=== PATIENT | female | born 1990 | race Caucasian/White ===

== ENCOUNTER 2020-04-12 17:47 | Emergency (ER) | payer BC ==
[2020-04-12] MEDS ORDERED: Albuterol/Ipratropium 3.0-0.5 MG/3 ML Neb Soln NEB ONE ×2 (17:58→18:59)
[2020-04-12] MEDS ORDERED: Sodium Chloride 0.9% 10 ML Syringe FLUSH PRN (17:58)
[2020-04-12] MEDS ORDERED: Sodium Chloride 0.9% 2.5 ML Syringe FLUSH PRN (17:58)
--- NOTE | 2020-04-12 18:02 | EDM.PDOC ---
<Arabella Lares - Last Filed: 04/12/20 19:02> ED HPI GENERAL MEDICAL PROBLEM - General Chief Complaint: Asthma Stated Complaint: Asthma Time Seen by Provider: 04/12/20 17:50 Source of Information: Reports: Patient History Limitations: Reports: No Limitations - History of Present Illness INITIAL COMMENTS - FREE TEXT/NARRATIVE: History of present illness: 29-year-old female presenting with difficulty breathing shortly before arriving here. 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 She had multiple visits today and she had to wear the mask for a long period of time and she felt by the fourth visit that she could not handle the mask and started to become more and more anxious and have difficulty breathing. She does have a history of asthma and she does not have an inhaler. She reports currently having difficulty breathing and chest pain with inhalation. No recent illness or coughing. No fevers. No tobacco, no hormonal medications Review of systems: As per history of present illness and below otherwise all systems reviewed and negative. Past medical history: As per history of present illness and as reviewed below otherwise noncontributory. Asthma Surgical history: As per history of present illness and as reviewed below otherwise noncontributory. Social history: No reported history of drug or alcohol abuse. Denies tobacco Family history: As per history of present illness and as reviewed below otherwise noncontributory. Physical exam: GEN: no acute distress, well appearing HEENT: Atraumatic, normocephalic, mucous membranes moist, Neck: supple, nontender, trachea midline. Lungs: No respiratory distress. Lungs largely clear, possible mild expiratory wheezes Heart: RRR Abdomen: Soft, nondistended, nontender. Back: nontender Extremities: Atraumatic. Neurovascularly intact. Neuro: Awake, alert, oriented. Neuro Exam nonfocal. Skin: warm, dry, no lesions Psychiatric: Appears very anxious Diagnostics: KG performed today at 5:45 PM, sinus rhythm, rate 95, no acute ischemia, no STEMI. Interpreted by me. Therapeutics: [] MDM: Impression: [] Plan: [] Definitive disposition and diagnosis as appropriate pending reevaluation and review of above. Chest Pain Score (Numeric/FACES): 5 - Related Data Allergies Allergy/AdvReac Type Severity Reaction Status Date / Time cat dander Allergy Cannot Verified 04/12/20 17:48 Remember dog dander Allergy Cannot Verified 04/12/20 17:48 Remember horse dander Allergy Cannot Verified 04/12/20 17:48 Remember Home Meds: Home Meds ALPRAZolam [Xanax] 1 tab PO DAILY 04/12/20 [History] Escitalopram Oxalate [Lexapro] 1 tab PO DAILY 04/12/20 [History] Past Medical History - Past Health History Medical/Surgical History: Denies Medical/Surgical History Respiratory History: Reports: Asthma - Infectious Disease History Infectious Disease History: Reports: None Social & Family History - Family History Family Medical History: Noncontributory - Tobacco Use Smoking Status *Q: Never Smoker - Caffeine Use Caffeine Use: Reports: Coffee - Recreational Drug Use Recreational Drug Use: No ED ROS GENERAL - Review of Systems Review Of Systems: See Below (See dictation) ED EXAM, GENERAL - Physical Exam Exam: See Below (See dictation) Course - Vital Signs Last Recorded V/S: Last Vital Signs Temp 97.8 F 04/12/20 17:49 Pulse 118 H 04/12/20 17:49 Resp 24 H 04/12/20 17:49 BP 136/71 04/12/20 17:49 Pulse Ox 97 04/12/20 17:49 - Orders/Labs/Meds Orders: Active Orders 24 hr Category Date Time Status EKG 12 Lead [EKG Documentation Completion] [RC] STAT Care 04/12/20 19:44 Active RT Aerosol Therapy [RC] ASDIRECTED Care 04/12/20 19:00 Active Sodium Chloride 0.9% [Saline Flush] Med 04/12/20 17:58 Active 10 ml FLUSH ASDIRECTED PRN Sodium Chloride 0.9% [Saline Flush] Med 04/12/20 17:58 Active 2.5 ml FLUSH ASDIRECTED PRN Saline Lock Insert [OM.PC] Stat Oth 04/12/20 17:58 Ordered Medication Orders Sodium Chloride (Saline Flush) 10 ml FLUSH ASDIRECTED PRN PRN Reason: Keep Vein Open Sodium Chloride (Saline Flush) 2.5 ml FLUSH ASDIRECTED PRN PRN Reason: Keep Vein Open Labs: Laboratory Tests 04/12/20 04/12/20 04/12/20 Range/Units 17:55 17:55 17:55 WBC 17.20 H (4.0-11.0) K/uL RBC 4.36 (4.30-5.90) M/uL Hgb 12.7 (12.0-16.0) g/dL Hct 40.5 (36.0-46.0) % MCV 92.9 (80.0-98.0) fL MCH 29.1 (27.0-32.0) pg MCHC 31.4 (31.0-37.0) g/dL RDW Std Deviation 48.5 (28.0-62.0) fl RDW Coeff of Coleen 14 (11.0-15.0) % Plt Count 395 (150-400) K/uL MPV 9.60 (7.40-12.00) fL Neut % (Auto) 66.8 (48.0-80.0) % Lymph % (Auto) 19.4 (16.0-40.0) % [place] % (Auto) 10.5 (0.0-15.0) % Eos % (Auto) 3.0 (0.0-7.0) % Baso % (Auto) 0.3 (0.0-1.5) % Neut # (Auto) 11.5 H (1.4-5.7) K/uL Lymph # (Auto) 3.3 H (0.6-2.4) K/uL [place] # (Auto) 1.8 H (0.0-0.8) K/uL Eos # (Auto) 0.5 (0.0-0.7) K/uL Baso # (Auto) 0.1 (0.0-0.1) K/uL Nucleated RBC % 0.0 /100WBC Nucleated RBCs # 0 K/uL D-Dimer, Quantitative 0.49 (0.0-0.50) mg/L FEU Sodium 140 (136-145) mmol/L Potassium 3.9 (3.5-5.1) mmol/L Chloride 106 (98-107) mmol/L Carbon Dioxide 22.3 (21.0-32.0) mmol/L BUN 7 (7.0-18.0) mg/dL Creatinine 0.7 (0.6-1.0) mg/dL Est Cr Clr Drug Dosing 100.55 mL/min Estimated GFR (MDRD) > 60.0 ml/min Glucose 99 (74-106) mg/dL Calcium 9.1 (8.5-10.1) mg/dL Total Bilirubin 0.3 (0.2-1.0) mg/dL AST 15 (15-37) IU/L ALT 24 (14-63) IU/L Alkaline Phosphatase 97 (46-116) U/L Troponin I < 0.050 (0.000-0.056) ng/mL Total Protein 7.8 (6.4-8.2) g/dL Albumin 3.9 (3.4-5.0) g/dL Globulin 3.9 (2.6-4.0) g/dL Albumin/Globulin Ratio 1.0 (0.9-1.6) HCG, Qual (NEG) 04/12/20 Range/Units 17:55 WBC (4.0-11.0) K/uL RBC (4.30-5.90) M/uL Hgb (12.0-16.0) g/dL Hct (36.0-46.0) % MCV (80.0-98.0) fL MCH (27.0-32.0) pg MCHC (31.0-37.0) g/dL RDW Std Deviation (28.0-62.0) fl RDW Coeff of Coleen (11.0-15.0) % Plt Count (150-400) K/uL MPV (7.40-12.00) fL Neut % (Auto) (48.0-80.0) % Lymph % (Auto) (16.0-40.0) % [place] % (Auto) (0.0-15.0) % Eos % (Auto) (0.0-7.0) % Baso % (Auto) (0.0-1.5) % Neut # (Auto) (1.4-5.7) K/uL Lymph # (Auto) (0.6-2.4) K/uL [place] # (Auto) (0.0-0.8) K/uL Eos # (Auto) (0.0-0.7) K/uL Baso # (Auto) (0.0-0.1) K/uL Nucleated RBC % /100WBC Nucleated RBCs # K/uL D-Dimer, Quantitative (0.0-0.50) mg/L FEU Sodium (136-145) mmol/L Potassium (3.5-5.1) mmol/L Chloride (98-107) mmol/L Carbon Dioxide (21.0-32.0) mmol/L BUN (7.0-18.0) mg/dL Creatinine (0.6-1.0) mg/dL Est Cr Clr Drug Dosing mL/min Estimated GFR (MDRD) ml/min Glucose (74-106) mg/dL Calcium (8.5-10.1) mg/dL Total Bilirubin (0.2-1.0) mg/dL AST (15-37) IU/L ALT (14-63) IU/L Alkaline Phosphatase (46-116) U/L Troponin I (0.000-0.056) ng/mL Total Protein (6.4-8.2) g/dL Albumin (3.4-5.0) g/dL Globulin (2.6-4.0) g/dL Albumin/Globulin Ratio (0.9-1.6) HCG, Qual NEGATIVE (NEG) Meds: Medications Generic Name Dose Route Start Last Admin Trade Name Freq PRN Reason Stop Dose Admin Sodium Chloride 10 ml 04/12/20 17:58 Saline Flush FLUSH ASDIRECTED PRN Keep Vein Open Sodium Chloride 2.5 ml 04/12/20 17:58 Saline Flush FLUSH ASDIRECTED PRN Keep Vein Open Discontinued Medications Generic Name Dose Route Start Last Admin Trade Name Freq PRN Reason Stop Dose Admin Acetaminophen 1,000 mg 04/12/20 18:51 04/12/20 19:28 Tylenol Extra Strength PO 04/12/20 18:52 1,000 mg ONETIME ONE Administration Albuterol/Ipratropium 3 ml 04/12/20 17:58 04/12/20 18:21 Duoneb 3.0-0.5 Mg/3 Ml NEB 04/12/20 17:59 3 ml ONETIME ONE Administration Albuterol/Ipratropium 3 ml 04/12/20 18:59 04/12/20 19:13 Duoneb 3.0-0.5 Mg/3 Ml NEB 04/12/20 19:00 3 ml ONETIME ONE Administration Ketorolac Tromethamine 15 mg 04/12/20 17:58 04/12/20 19:27 Toradol IVPUSH 04/12/20 17:59 15 mg ONETIME ONE Administration Ketorolac Tromethamine 15 mg 04/12/20 18:51 04/12/20 19:32 Toradol IVPUSH 04/12/20 18:52 Not Given ONETIME ONE - Re-Assessments/Exams Free Text/Narrative Re-Assessment/Exam: 04/12/20 18:52 I reevaluated the patient. She is resting. She does report that she is still having some difficulty breathing and chest pain. She appears extremely anxious. We did discuss this. She reports she has a history of anxiety. I offered medication but she does not have a ride and she lives in [place] and has to drive back there. She is however requesting something additional for pain. We discussed Tylenol, which she told me she took hours ago and did not help her symptoms. We discussed plan to reattempt Tylenol here as it is been many hours , and give second dose of Toradol for total 30 mg. While we were discussing her lab results including negative d-dimer, she did disclose that she had previously had pulmonary emboli, which she had not reported on initial H&P nor to nursing during past medical history discussion. We discussed recommendation for CT angio chest as she is tachycardic, dyspneic, and now considered high risk due to her history of multiple pulmonary emboli. She is concerned about the cost. We discussed the life-threatening nature of pulmonary emboli and the need to fully evaluate for this by a CT scan. CT was ordered. 04/12/20 19:[address] scan when the optical technician came to pick her up. Signed over to Dr. Gallardo pending pain control, additional DuoNeb and reassessment. Departure - Departure Time of Disposition: 19:05 Disposition: Home, Self-Care 01 Clinical Impression: Acute asthma exacerbation - Discharge Information Instructions: Shortness of Breath, Adult, [id number], Asthma, Adult, Easy-to- Read Referrals: PCP,None [Primary Care Provider] - Forms: ED Department Discharge Additional Instructions: You was seen in the emergency room today for treatment of your shortness of breath. Your chest x-ray did not reveal any evidence of pneumonia or other pathology. Your blood tests were all normal except for a slightly elevated white blood cell count. Given your significant history of blood clots in the past, we have recommended that you get a CT scan of your chest so that we can rule out a blood clot as the cause of your shortness of breath. At this time you are refusing to get a CT scan. As we discussed, a missed blood clot could result in significant morbidity as well as . We will respect her autonomy but would highly recommend that you return to the ER if your shortness of breath returns or if you change your mind about getting a CT scan to rule out a pulmonary embolism. Please make sure you follow-up with your family doctor tomorrow to get reevaluated. The following information is given to patients seen in the emergency department who are being discharged to home. This information is to outline your options for follow-up care. We provide all patients seen in our emergency department with a follow-up referral. The need for follow-up, as well as the timing and circumstances, are variable depending upon the specifics of your emergency department visit. If you don't have a primary care physician on staff, we will provide you with a referral. We always advise you to contact your personal physician following an emergency department visit to inform them of the circumstance of the visit and for follow-up with them and/or the need for any referrals to a consulting specialist. The emergency department will also refer you to a specialist when appropriate. This referral assures that you have the opportunity for follow-up care with a specialist. All of these measure are taken in an effort to provide you with optimal care, which includes your follow-up. Under all circumstances we always encourage you to contact your private physician who remains a resource for coordinating your care. When calling for follow-up care, please make the office aware that this follow-up is from your recent emergency room visit. If for any reason you are refused follow-up, please contact the [facility] Emergency Department at and asked to speak to the emergency department charge nurse. Sepsis Event Note (ED) - Evaluation Sepsis Screening Result: Possible Sepsis Risk - Focused Exam Vital Signs: Vital Signs Temp Pulse Resp BP Pulse Ox 04/12/20 17:49 97.8 F 118 H 24 H 136/71 97 <Lamin Gallardo - Last Filed: 04/12/20 20:07> ED HPI GENERAL MEDICAL PROBLEM - History of Present Illness INITIAL COMMENTS - FREE TEXT/NARRATIVE: April 12, 2020 7 PM: Signout received by me. Patient is clinically hemodynamically stable at this time. Patient presented to the ER today secondary to shortness of breath. Upon my evaluation at 7:45 PM patient reports that she feels 100% back to normal. Patient reports that after the second neb treatment that she received that her shortness of breath and dizziness have completely resolved. I have discussed with the patient once again the concern regarding pulmonary embolism and the need to get a CAT scan given her high risk. Patient reports that she has spoken to her mother and both she and her mother do not feel that she would want a CT scan at this time. She feels that her symptoms are likely secondary to her asthma and not from a pulmonary embolism. Patient reports that she feels that because she did not have her albuterol MDI with her today and she felt that she had a with her that she likely could have averted this ER visit. Patient also reports that the fact that the neb treatments helped her and that she feels back to normal makes it unlikely that she has a pulmonary embolism. Patient, in consultation with her mother, have declined the CAT scan and understands all risks involved with missing a pulmonary embolism including . Patient currently reports that she feels back to baseline and is requesting to be discharged home. Patient was ambulated in the ED and reports that she has absolutely no shortness of breath after walking around multiple times in the ER and reports that her dizziness is even resolved. Patient reports that she feels back to normal. Patient will be discharged home at this time with a prescription from our [employer] med system for albuterol MDI for her ride home. Patient reports that she does have her meds at home and my not. Physical exam: Lungs clear no wheezing rales or rhonchi at this time. Patient is ambulating in the ED. Patient's pulse ox is 98% on room air. Patient is not exhibiting any signs or symptoms concerning for respiratory distress. Patient's heart exam revealed regular rate and rhythm with no split S2. No RV heave. Patient has no calf tenderness or Homans signs.
[2020-04-12 18:29] LABS: BLOOD UREA NITROGEN,BUN 7 mg/dL (7.0-18.0); CARBON DIOXIDE,CO2 22.3 mmol/L (21.0-32.0); CHLORIDE,CL 106 mmol/L (98-107); GLUCOSE RANDOM 99 mg/dL (74-106); POTASSIUM,K 3.9 mmol/L (3.5-5.1); SODIUM,NA 140 mmol/L (136-145)
--- NOTE | 2020-04-12 18:33 | CR ---
Chest: 2 views of the chest were obtained. Comparison: Prior chest x-ray of 03/20/11. Heart size and mediastinum are normal. Lungs are clear with no acute parenchymal change. Bony structures appear within normal limits for the patient's age. Impression: 1. Nothing acute is seen on 2 view chest x-ray. Diagnostic code #1 This report was dictated in MDT
[2020-04-12] MEDS ORDERED: Ketorolac 30 MG/ML SDV IVPUSH ONE (18:51)
[2020-04-12] MEDS ORDERED: Acetaminophen 500 MG Tab PO ONE (18:51)
[2020-04-12] MEDS: Ketorolac 15 MG/ML SDV IVPUSH ONE ×2 (19:07→19:27)
== END 2020-04-12 20:25 | disposition home or self-care (01) ==
LOC: MW.ED 17:47
DX: J45.901 Unspecified asthma with (acute) exacerbation (principal); Z79.899 Other long term (current) drug therapy; Z91.048 Other nonmedicinal substance allergy status
CPT/HCPCS: 71046; 80053; 84484; 84703; 85025; 85379; 93005; 94640; 96374; 99285; A9270; J1885; J7620-GY